=== PATIENT | female | born 1940 | race Caucasian/White ===

== ENCOUNTER 2018-09-20 20:06 | Inpatient (IN) ==
[2018-09-20] MEDS ORDERED: Acetaminophen 325 MG Tablet PO PRN (21:37)
[2018-09-20] MEDS ORDERED: Bisacodyl 10 MG Supp RECTAL PRN (21:37)
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
[2018-09-20] MEDS ORDERED: Artificial Tears Opth Drops 15 ML Bottle EACH EYE PRN (21:43)
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
[2018-09-20] MEDS: levETIRAcetam 500 MG Tablet PO SCH (23:10)
[2018-09-20] MEDS: Sod Chloride 0.9% Inj 1,000 ML IV.CONT SCH (23:10)
[2018-09-21] MEDS: Levothyroxine 100 MCG Tablet PO SCH (05:02)
[2018-09-21] MEDS ORDERED: Levothyroxine 88 MCG Tablet PO SCH (06:00)
[2018-09-21 06:40] LABS: Baso % (Auto) 0.5 % (0.0-2.0); Eos # (Auto) 0.4 th/mm3 (0.0-0.4); Eos % (Auto) 4.3 % (0.0-4.0); Hematocrit 26.2 % (35.0-46.0); Hemoglobin 8.9 gm/dL (11.6-15.3); Lymph # (Auto) 1.7 th/mm3 (1.0-4.8); Lymph % (Auto) 17.1 % (9.0-44.0); Mean Corpuscular Hemoglobin 33.6 pg (27.0-34.0); Mean Corpuscular Volume 98.6 fL (80.0-100.0); Mean Platelet Volume 8.5 fL (7.0-11.0); Mono # (Auto) 0.5 th/mm3 (0.0-0.9); Mono % (Auto) 5.2 % (0.0-8.0); Neut # (Auto) 7.1 th/mm3 (1.8-7.7); Neut % (Auto) 72.9 % (16.0-70.0); Platelet Count 257 th/mm3 (150-450); Red Blood Count 2.66 mil/mm3 (4.00-5.30); White Blood Count 9.8 th/mm3 (4.0-11.0)
[2018-09-21 06:56] LABS: Alanine Aminotransferase 26 U/L (10-53); Albumin 2.4 g/dL (3.4-5.0); Anion Gap 8 meq/L (5-15); Aspartate Aminotransferase 25 U/L (15-37); Blood Urea Nitrogen 16 mg/dL (7-18); Calcium 8.9 mg/dL (8.5-10.1); Carbon Dioxide 26.8 meq/L (21.0-32.0); Chloride 108 meq/L (98-107); Glomerular Filtration Rate 71 mL/min (>89); Glucose,Random 100 mg/dL (74-106); Potassium 4.2 meq/L (3.5-5.1); Sodium 143 meq/L (136-145)
[2018-09-21 06:58] LABS: Alkaline Phosphatase 82 U/L (45-117); Total Protein 6.4 g/dL (6.4-8.2)
[2018-09-21] MEDS: levETIRAcetam 500 MG Tablet PO SCH ×2 (08:59→20:58)
[2018-09-21] MEDS: Tiotropium Bromide 18 MCG/ACT Inhaler INH SCH (08:59)
[2018-09-21] MEDS: Atenolol 25 MG Tablet PO SCH (08:59)
[2018-09-21] MEDS: Sod Chloride 0.9% Inj 1,000 ML IV.CONT SCH (12:09)
--- NOTE | 2018-09-21 13:50 | P.PNIM ---
Subjective Interval history: Patient admitted with altered mental status in the presence of UTI. Mental status has improved. Patient's primary complaint right now is pain. Tramadol tried earlier today and provides patient no benefit. No other complaints at this time. Physical Exam Vital signs: Last Vital Signs Temp 97.9 F 09/21/18 08:00 Pulse 76 09/21/18 08:00 Resp 16 09/21/18 08:00 BP 152/68 H 09/21/18 08:00 Pulse Ox 99 09/21/18 08:00 Intake & Output 09/19/18 09/20/18 09/21/18 09/22/18 06:59 06:59 06:59 06:59 Intake Total 160 / 160 1000 / 1000 Balance 160 / 160 1000 / 1000 Weight 74.3 kg Narrative: GENERAL: NAD, A&Ox3 HEAD: Normocephalic. NECK: Supple, trachea midline. No lymphadenopathy. EYES: No scleral icterus. No injection or drainage. CARDIOVASCULAR: Regular rate and rhythm without murmurs, gallops, or rubs. RESPIRATORY: Breath sounds equal bilaterally. No accessory muscle use. GASTROINTESTINAL: Abdomen soft, non-tender, nondistended. MUSCULOSKELETAL: No cyanosis, or edema. SKIN: Warm and dry. NEURO: No focal neurological deficits. Results Labs CBC & Chem 7: 09/21/18 05:48 09/21/18 05:48 Labs: Microbiology 09/20/18 21:00 Blood - Peripheral Aerobic Blood Culture - Preliminary No growth in 1 day 09/20/18 21:00 Blood - Peripheral Anaerobic Blood Culture - Preliminary No growth in 1 day 09/20/18 21:05 Blood - Peripheral Aerobic Blood Culture - Preliminary No growth in 1 day 09/20/18 21:05 Blood - Peripheral Anaerobic Blood Culture - Preliminary No growth in 1 day Imaging Imaging: Impressions Cervical Spine CT 09/20/18 20:33 CONCLUSION: 1. C2 odontoid process fracture. No bone bridging. Surrounding ligamentous calcification. No bony retropulsion. No central canal narrowing. 2. C5 spinous process fracture. 3. Multilevel degenerative findings of the cervical spine with neural foraminal narrowing at multiple levels. Central canal diameter within normal limits at all levels. Assessment and Plan Plan 78-year-old female with a history of hypothyroidism and hypertension was a transfer from [facility] for altered mental status and lethargy. Urinary tract infection is present, treatment underway. Mental status has improved today. Continue antibiotic treatments for UTI. Continue monitoring patient's mental status. Pain treatments added as a treatment today. Acute encephalopathy likely related to UTI Treat infection Monitor clinically for improvement Urinary tract infection Leukocytosis Continue Rocephin IV hydration Follow cultures History of traumatic brain injury History of subdural hematoma History of C2 cervical fracture History of C5 vertebral fracture History of L1 compression fracture History of nondisplaced C2 odontoid fracture Orbital floor fracture Nasal bone fracture Continue neck brace Continue PT Continue OT Patient transitioned to this hospitalization from inpatient rehab Anticipate return to inpatient rehab after this hospitalization Continue Keppra Avoid severe hypertension TLSO brace when out of bed recommended for 3 months No bending no twisting no heavy lifting Oral maxillofacial surgery saw and opted for nonoperative management Pured diet Hypertension Continue baseline treatment Follow blood pressures Adjust treatments as needed home medications Cozaar and atenolol COPD No exacerbation continue Spiriva Hypothyroidism TSH 18.8, chronic Levothyroxine increased to 100 mcg daily Follow as an outpatient DVT prophylaxis SCDs Progress Note: Quality VTE Deep Vein Thrombosis/Pulmonary Embolism Present on Admission: No
[2018-09-21] MEDS ORDERED: Baclofen 10 MG Tablet PO SCH (21:00)
[2018-09-22] MEDS: Levothyroxine 100 MCG Tablet PO SCH (05:11)
[2018-09-22 05:34] LABS: Baso # (Auto) 0.1 th/mm3 (0.0-0.2); Baso % (Auto) 0.7 % (0.0-2.0); Eos # (Auto) 0.3 th/mm3 (0.0-0.4); Eos % (Auto) 3.8 % (0.0-4.0); Hematocrit 25.1 % (35.0-46.0); Hemoglobin 8.5 gm/dL (11.6-15.3); Lymph # (Auto) 1.5 th/mm3 (1.0-4.8); Lymph % (Auto) 16.7 % (9.0-44.0); Mean Corpuscular HGB Conc 33.8 % (32.0-36.0); Mean Corpuscular Hemoglobin 33.2 pg (27.0-34.0); Mean Corpuscular Volume 98.2 fL (80.0-100.0); Mean Platelet Volume 8.6 fL (7.0-11.0); Mono # (Auto) 0.5 th/mm3 (0.0-0.9); Mono % (Auto) 5.1 % (0.0-8.0); Neut # (Auto) 6.6 th/mm3 (1.8-7.7); Neut % (Auto) 73.7 % (16.0-70.0); Platelet Count 261 th/mm3 (150-450); Red Blood Count 2.56 mil/mm3 (4.00-5.30); Red Cell Distribution Width 13.9 % (11.6-17.2)
[2018-09-22 06:04] LABS: Alanine Aminotransferase 23 U/L (10-53); Albumin 2.3 g/dL (3.4-5.0); Anion Gap 9 meq/L (5-15); Aspartate Aminotransferase 19 U/L (15-37); Blood Urea Nitrogen 14 mg/dL (7-18); Calcium 8.3 mg/dL (8.5-10.1); Carbon Dioxide 24.2 meq/L (21.0-32.0); Chloride 107 meq/L (98-107); Glomerular Filtration Rate 78 mL/min (>89); Glucose,Random 106 mg/dL (74-106); Sodium 140 meq/L (136-145)
[2018-09-22 06:06] LABS: Alkaline Phosphatase 82 U/L (45-117); Total Protein 6.1 g/dL (6.4-8.2)
[2018-09-22] MEDS: Atenolol 25 MG Tablet PO SCH (09:54)
[2018-09-22] MEDS: levETIRAcetam 500 MG Tablet PO SCH ×2 (09:54→22:29)
[2018-09-22] MEDS: Tiotropium Bromide 18 MCG/ACT Inhaler INH SCH (09:57)
--- NOTE | 2018-09-22 13:37 | P.PN ---
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 1000 / 1000 CONT .[id number] [facility] Rx#:[id number] Output: Urine 500 / 500 Other: Date of Last Bowel Movement 09/21/18 09/21/18 Narrative: GENERAL: NAD, A&Ox3, speech clear HEAD: Normocephalic. NECK: Supple, trachea midline. No lymphadenopathy. EYES: No scleral icterus. No injection or drainage. CARDIOVASCULAR: Regular rate and rhythm RESPIRATORY: Breath sounds equal bilaterally. No accessory muscle use. GASTROINTESTINAL: Abdomen soft, non-tender, nondistended. MUSCULOSKELETAL: No cyanosis, or edema. SKIN: Warm and dry. some superficial ecchymsoes NEURO: No focal neurological deficits. Results - Labs CBC & Chem 7: 09/22/18 04:16 09/22/18 04:16 Laboratory Results - last 24 hr 09/22/18 09/22/18 04:16 04:16 WBC 9.0 RBC 2.56 L Hgb 8.5 L Hct 25.1 L MCV 98.2 MCH 33.2 MCHC 33.8 RDW 13.9 Plt Count 261 MPV 8.6 Neut % (Auto) 73.7 H Lymph % (Auto) 16.7 Love % (Auto) 5.1 Eos % (Auto) 3.8 Baso % (Auto) 0.7 Neut # (Auto) 6.6 Lymph # (Auto) 1.5 Love # (Auto) 0.5 Eos # (Auto) 0.3 Baso # (Auto) 0.1 WBC Differential . Differential Comment Auto diff final Sodium 140 Potassium 4.0 Chloride 107 Carbon Dioxide 24.2 Anion Gap 9 BUN 14 Creatinine 0.73 Estimated GFR 78 L Random Glucose 106 Calcium 8.3 L Total Bilirubin 0.5 AST 19 ALT 23 Alkaline Phosphatase 82 Total Protein 6.1 L Albumin 2.3 L Microbiology 09/20/18 21:00 Blood - Peripheral Aerobic Blood Culture - Preliminary No growth in 2 days 09/20/18 21:00 Blood - Peripheral Anaerobic Blood Culture - Preliminary No growth in 2 days 09/20/18 21:05 Blood - Peripheral Aerobic Blood Culture - Preliminary No growth in 2 days 09/20/18 21:05 Blood - Peripheral Anaerobic Blood Culture - Preliminary No growth in 2 days Assessment and Plan - Plan 78-year-old female with a history of hypothyroidism and hypertension was a transfer from [facility] for altered mental status and lethargy. Urinary tract infection is present, treatment underway. Mental status has improved today. Continue antibiotic treatments for UTI. Continue monitoring patient's mental status. Pain treatments added as a treatment today. Acute encephalopathy- MS improved- andieley multifactrial- ITOI + pain meds likely related to UTI Treat infection Monitor clinically for improvement Urinary tract infection Leukocytosis Continue Rocephin IV hydration Follow cultures- negative so far- we will treat for 3 days if negative cultures History of traumatic brain injury History of subdural hematoma History of C2 cervical fracture History of C5 vertebral fracture History of L1 compression fracture History of nondisplaced C2 odontoid fracture Orbital floor fracture Nasal bone fracture Continue neck brace Continue PT Continue OT Patient transitioned to this hospitalization from inpatient rehab Anticipate return to inpatient rehab after this hospitalization Continue Keppra Avoid severe hypertension TLSO brace when out of bed recommended for 3 months No bending no twisting no heavy lifting Oral maxillofacial surgery saw and opted for nonoperative management Pured diet Hypertension Continue baseline treatment Follow blood pressures Adjust treatments as needed home medications Cozaar and atenolol COPD No exacerbation continue Spiriva Hypothyroidism TSH 18.8, chronic Levothyroxine increased to 100 mcg daily Follow as an outpatient DVT prophylaxis SCDs Progress Note: Quality VTE Deep Vein Thrombosis/Pulmonary Embolism Present on Admission: No DC planning- CM= [facility] if accepted
[2018-09-22] MEDS: Sod Chloride 0.9% Inj 1,000 ML IV.CONT SCH (23:40)
[2018-09-22 23:48] VITALS: RESP 18
[2018-09-23] MEDS: Sod Chloride 0.9% Inj 1,000 ML IV.CONT SCH (02:17)
[2018-09-23 04:55] VITALS: O2SAT 94
[2018-09-23] MEDS: Levothyroxine 100 MCG Tablet PO SCH (06:21)
[2018-09-23 08:18] VITALS: PULSE 75
[2018-09-23] MEDS: Atenolol 25 MG Tablet PO SCH (08:31)
[2018-09-23] MEDS: Tiotropium Bromide 18 MCG/ACT Inhaler INH SCH (08:32)
[2018-09-23] MEDS: levETIRAcetam 500 MG Tablet PO SCH (08:32)
[2018-09-23 08:36] VITALS: BP 156/72; TEMP 97.5
[2018-09-23] MEDS ORDERED: Amoxicillin/Clavulanate 875/125 MG Tablet PO SCH (09:45)
--- NOTE | 2018-09-23 09:51 | P.PN ---
Subjective Interval history: awake and alert, no complains had a good night no dysuria patient and daughter- requesting for a regular diet instead of cardiac diet Physical Exam Vital signs: Vital Signs 09/22/18 12:00 09/22/18 16:00 09/22/18 20:00 Temperature 98.0 F 98.1 F 97.8 F Pulse Rate 69 74 77 Respiratory Rate 15 19 17 Blood Pressure 112/58 L 163/79 H 159/76 H Pulse Oximetry 96 94 L 96 09/22/18 23:47 09/23/18 04:00 09/23/18 08:00 Temperature 98.5 F 97.8 F 97.5 F L Pulse Rate 75 77 75 Respiratory Rate 18 18 18 Blood Pressure 157/88 H 141/70 H 156/72 H Pulse Oximetry 94 L 94 L 94 L 09/23/18 08:10 Temperature Pulse Rate 75 Respiratory Rate Blood Pressure Pulse Oximetry Intake & Output 09/22/18 09/23/18 09/23/18 18:59 06:59 18:59 Intake Total 1340 / 1340 Output Total 1200 / 1200 Balance 140 / 140 Weight 77.2 kg Intake: IV 1100 / 1100 NS Inj 1,000 ML @ 84 mls/hr IV. 1000 / 1000 CONT .[id number] ARSEN Rx#:[id number] Rocephin Inj 1,000 MG In NS Inj 100 / 100 100 ML @ 200 mls/hr IV.SIG Q24H A[facility]EN Rx#:[id number] Oral 240 / 240 Output: Urine 1200 / 1200 Emesis 0 / 0 Other: Date of Last Bowel Movement 09/21/18 09/21/18 Narrative: GENERAL: NAD, A&Ox3, speech clear HEAD: Normocephalic. NECK: Supple, trachea midline. No lymphadenopathy. EYES: No scleral icterus. No injection or drainage. CARDIOVASCULAR: Regular rate and rhythm RESPIRATORY: Breath sounds equal bilaterally. No accessory muscle use. GASTROINTESTINAL: Abdomen soft, non-tender, nondistended. MUSCULOSKELETAL: No cyanosis, or edema. SKIN: Warm and dry. some superficial ecchymsoes NEURO: No focal neurological deficits. Results - Labs CBC & Chem 7: 09/22/18 04:16 09/22/18 04:16 Microbiology 09/20/18 21:00 Blood - Peripheral Aerobic Blood Culture - Preliminary No growth in 2 days 09/20/18 21:00 Blood - Peripheral Anaerobic Blood Culture - Preliminary No growth in 2 days 09/20/18 21:05 Blood - Peripheral Aerobic Blood Culture - Preliminary No growth in 2 days 09/20/18 21:05 Blood - Peripheral Anaerobic Blood Culture - Preliminary No growth in 2 days Assessment and Plan - Plan 78-year-old female with a history of hypothyroidism and hypertension was a transfer from [facility] for altered mental status and lethargy. Urinary tract infection is present, treatment underway. Mental status has improved today. Continue antibiotic treatments for UTI. Continue monitoring patient's mental status. Pain treatments added as a treatment today. Acute encephalopathy- MS improved- marilyn multifactrial- ITOI + pain meds likely related to UTI Treat infection Monitor clinically for improvement Urinary tract infection- E, faecalis Leukocytosis- down disocntinue Rocephin - change to aumentin 875 mg po bid x 5 days History of traumatic brain injury History of subdural hematoma History of C2 cervical fracture History of C5 vertebral fracture History of L1 compression fracture History of nondisplaced C2 odontoid fracture Orbital floor fracture Nasal bone fracture Continue neck brace Continue PT Continue OT Patient transitioned to this hospitalization from inpatient rehab Anticipate return to inpatient rehab after this hospitalization Continue Keppra TLSO brace when out of bed recommended for 3 months No bending no twisting no heavy lifting Oral maxillofacial surgery saw and opted for nonoperative management Pured diet Hypertension Continue baseline treatment Follow blood pressures Adjust treatments as needed home medications Cozaar and atenolol COPD No exacerbation continue Spiriva Hypothyroidism TSH 18.8, chronic Levothyroxine increased to 100 mcg daily Follow as an outpatient DVT prophylaxis SCDs Progress Note: Quality VTE Deep Vein Thrombosis/Pulmonary Embolism Present on Admission: No DC planning- CM= acvk to [place] if accepted
== END 2018-09-23 11:40 | DRG 690 ==
LOC: N07 20:06
PROVIDERS: ADMIT Internal Medicine; ATTEND Internal Medicine
CPT/HCPCS: 72125; 80053; 85025; 87040; 97110; 97116; 97163; 97166; J0696; J7030